=== PATIENT | male | born 1945 | race Caucasian/White ===

== ENCOUNTER 2019-03-28 23:14 | Emergency (ER) | payer MEDICARE, OTHER ==
[~2019-03-28] VITALS: Ht 177.8 cm; Wt 93.6 kg
--- NOTE | 2019-03-28 23:34 | REPVR ---
EXAM: CT Head Without Contrast EXAM DATE/TIME: 03/28/2019 11:29 PM CLINICAL HISTORY: 74 years old, male; Altered mental status/memory loss; Additional info: AMS TECHNIQUE: Imaging protocol: Computed tomography of the head without contrast. Radiation optimization: All CT scans at this facility use at least one of these dose optimization techniques: automated exposure control; mA and/or kV adjustment per patient size (includes targeted exams where dose is matched to clinical indication); or iterative reconstruction. Other technique: STROKE PROTOCOL was implemented. COMPARISON: No relevant prior studies available. FINDINGS: There is a large cortical based area of encephalomalacia in the distribution of the right middle cerebral artery. Mild ex vacuo dilatation of the right lateral ventricle. 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 No intra-or extra-axial hemorrhage. No mass effect or midline shift. Ventricles are mildly dilated with associated cortical volume loss consistent with generalized atrophy. Chronic ischemic changes in the periventricular deep white matter. No focal parenchymal abnormalities. No calvarial fractures. ASPECTS ([facility] Stroke Program Early CT Score) is 10 IMPRESSION: Area of old infarction in the distribution of the right MCA. No acute intracranial process or intracranial hemorrhage. Generalized atrophy and chronic ischemic changes. If clinical concern for acute infarction, MRI with diffusion weighted sequences or intracranial CTA should be considered. Electronically signed by: Glenn Suresh On 03/28/2019 23:34:11 PM
--- NOTE | 2019-03-28 23:46 | REPVR ---
EXAM: CT Cervical Spine Without Contrast EXAM DATE/TIME: 03/28/2019 11:29 PM CLINICAL HISTORY: 74 years old, male; Pain; Other: AMS TECHNIQUE: Imaging protocol: Computed tomography images of the cervical spine without contrast. Radiation optimization: All CT scans at this facility use at least one of these dose optimization techniques: automated exposure control; mA and/or kV adjustment per patient size (includes targeted exams where dose is matched to clinical indication); or iterative reconstruction. COMPARISON: No relevant prior studies available. FINDINGS: On sagittal sequences, there is normal cervical lordosis. Cervical vertebral body heights are maintained. Disc spaces are maintained for age. Degenerative anterior osteophyte formation, greatest at C5-C6 and C6-C7. There is no AP malalignment. No prevertebral soft tissue swelling. Posterior elements and facets are intact. Mild to moderate facet hypertrophic changes. On axial sequences, intact neural rings are identified from C1-T1. No evidence of acute fracture. Visualized lung apices are clear. IMPRESSION: Degenerative changes as described above. No acute fracture or traumatic AP malalignment within the cervical spine. Electronically signed by: Glenn Suresh On 03/28/2019 23:46:22 PM
[2019-03-29] MEDS ORDERED: METF500T13 PO (00:03)
[2019-03-29] MEDS ORDERED: METO50TA7 PO (00:03)
[2019-03-29] MEDS ORDERED: ACET-683 PO (00:03)
[2019-03-29] MEDS ORDERED: DIVA250T67 PO (00:03)
[2019-03-29] MEDS ORDERED: XARE20TA PO (00:03)
[2019-03-29] MEDS ORDERED: FLUO20CA19 PO (00:03)
[2019-03-29] MEDS: NS 1,000 ML IV ONE (00:26)
[2019-03-29 00:34] LABS: BASO % 0.8 % (0.0-1.0); EOS # 0.1 10^3/uL (0.0-0.5); HEMATOCRIT 37.9 % (42.0-52.0); HEMOGLOBIN 12.8 g/dl (13.5-17.5); LYMPH # 0.9 10^3/uL (1.5-5.0); LYMPH % 18.8 % (24.0-44.0); MEAN CORPUSCULAR HEMOGLOBIN 36.1 pg (27.0-33.0); MEAN CORPUSCULAR HGB CONC 33.8 g/dl (32.0-36.5); MEAN CORPUSCULAR VOLUME 106.8 fl (80.0-96.0); MONO # 0.7 10^3/uL (0.0-0.8); MONO % 13.6 % (0.0-5.0); NEUTROPHILS # 3.2 10^3/uL (1.5-8.5); NEUTROPHILS % 63.8 % (36.0-66.0); PLATELET COUNT, AUTOMATED 198 10^3/uL (150-450); RED BLOOD COUNT 3.55 10^6/uL (4.30-6.10)
[2019-03-29 00:59] LABS: BLOOD UREA NITROGEN 15 MG/DL (7-18); CALCIUM LEVEL 8.7 MG/DL (8.8-10.2); CARBON DIOXIDE LEVEL 29 MEQ/L (21-32); CHLORIDE LEVEL 110 MEQ/L (98-107); CREATININE FOR GFR 0.92 MG/DL (0.70-1.30); ETHYL ALCOHOL (ETHANOL) 0.133 % (0.000-0.010); GLOMERULAR FILTRATION RATE > 60.0 (>42); GLUCOSE, FASTING 94 MG/DL (70-100); POTASSIUM SERUM 3.5 MEQ/L (3.5-5.1); SODIUM LEVEL 146 MEQ/L (136-145)
[2019-03-29 01:15] VITALS: BP 160/103
== END 2019-03-29 01:35 | disposition home or self-care (01) ==
LOC: M ED 23:14
DX: F10.929 Alcohol use, unspecified with intoxication, unspecified (principal); R41.82 Altered mental status, unspecified; R42 Dizziness and giddiness; I10 Essential (primary) hypertension; Z79.899 Other long term (current) drug therapy
CPT/HCPCS: 70450; 72125; 80048; 85025; 99284; G0480